=== PATIENT | male | born 1980 | race Caucasian/White ===

== ENCOUNTER 2018-09-06 16:50 | Emergency (ER) | payer BC ==
[~2018-09-06] VITALS: Ht 195.6 cm; Wt 102.1 kg
[2018-09-06] MEDS ORDERED: IV NORMAL SALINE 1,000ML 1,000 ML IV SCH (17:16)
[2018-09-06] MEDS ORDERED: KETOROLAC 30 MG/ML VIAL. IV ONE ×2 (17:30→18:45)
[2018-09-06] MEDS ORDERED: ONDANSETRON PF 4 MG/2 ML VIAL. IV ONE ×2 (17:30→18:45)
[2018-09-06 17:40] LABS: BASO % 0 % (0-3); EOS # 0.2 x10^3/uL (0.0-0.7); EOS % 2 % (0-3); HEMATOCRIT 44.1 % (39.0-53.0); HEMOGLOBIN 14.7 g/dL (13.0-17.5); LYMPH # 1.9 x10^3/uL (1.0-4.8); LYMPH % 25 % (24-48); MEAN CORPUSCULAR HEMOGLOBIN 31 pg (25-35); MEAN CORPUSCULAR HGB CONC 34 g/dL (31-37); MEAN CORPUSCULAR VOLUME 92 fL (79-100); MONO # 0.7 x10^3/uL (0.0-1.1); MONO % 9 % (0-9); NEUT # 4.8 x10^3uL (1.8-7.7); NEUT % 64 % (31-73); PLATELET COUNT 306 x10^3/uL (140-400); RED BLOOD COUNT 4.78 x10^6/uL (4.30-5.70); RED CELL DISTRIBUTION WIDTH 13.4 % (11.5-14.5); WHITE BLOOD COUNT 7.5 x10^3/uL (4.0-11.0)
[2018-09-06 18:04] LABS: ALBUMIN 4.3 g/dL (3.4-5.0); ALBUMIN/GLOBULIN RATIO 1.2 (1.0-1.7); CREATININE 0.9 mg/dL (0.7-1.3); GFR 94.4; POTASSIUM 3.5 mmol/L (3.5-5.1); TOTAL BILIRUBIN 0.3 mg/dL (0.2-1.0); TOTAL PROTEIN 7.8 g/dL (6.4-8.2)
--- NOTE | 2018-09-06 18:10 | PHYS DOC ---
Adult General Chief Complaint Chief Complaint: abdominal pain HPI HPI Patient is a 38 year old male who presents from his primary care physician office Dr. Grayson at [place] because of abdominal pain. Patient complaining of right lower quadrant abdominal pain for one month that getting worse for the last 2 days. Patient complaining of a stabbing pain in right lower quadrant as a constant pain getting better and worse. Patient complaining of 2 episodes of vomiting and nausea for the last 2 days and complaining of 2 episodes of diarrhea every day. Patient complaining of subjective fever and decrease of appetite and activity. Patient rated his pain 10 over 10. (RASHARD ACEVEDO MD) Review of Systems Review of Systems Constitutional: Reports fever] Eyes: Denies change in visual acuity, redness, or eye pain [] HENT: Denies nasal congestion or sore throat [] Respiratory: Denies cough or shortness of breath [] Cardiovascular: No additional information not addressed in HPI [] GI: Reports abdominal pain, nausea, vomiting, diarrhea [] : Denies dysuria or hematuria [] Musculoskeletal: Denies back pain or joint pain [] Integument: Denies rash or skin lesions [] Neurologic: Denies headache, focal weakness or sensory changes [] Endocrine: Denies polyuria or polydipsia [] All other systems were reviewed and found to be within normal limits, except as documented in this note. (RASHARD ACEVEDO MD) Current Medications Current Medications Current Medications Medications (Trade) Dose Ordered Sig/[place]on Start Time Stop Time Status Last Admin Dose Admin Ketorolac Tromethamine (Toradol 30mg Vial) 30 mg 1X ONCE 09/06/18 17:30 09/06/18 17:46 DC 09/06/18 17:40 30 MG Ondansetron HCl (Zofran) 4 mg 1X ONCE 09/06/18 17:30 09/06/18 17:46 DC 09/06/18 17:40 4 MG Sodium Chloride 1,000 ml @ 1,000 mls/hr Q1H 09/06/18 17:16 09/06/18 18:15 09/06/18 17:39 1,000 MLS/HR (RASHARD ACEVEDO MD) Allergies Allergies Allergies Coded Allergies Type Severity Reaction Last Updated Verified No Known Drug Allergies 09/06/18 No (RASHARD ACEVEDO MD) Physical Exam Physical Exam Constitutional: Well developed, well nourished, moderate distress, non-toxic appearance. [] HENT: Normocephalic, atraumatic, oropharynx dry, no oral exudates, nose normal. [] Eyes: PERRLA, EOMI, conjunctiva normal, no discharge. [] Neck: Normal range of motion, no tenderness, supple, no stridor. [] Cardiovascular:Heart rate regular rhythm, no murmur [] Lungs & Thorax: Bilateral breath sounds clear to auscultation [] Abdomen: Bowel sounds normal, soft, no tenderness, right lower quadrant guarding , no masses, no pulsatile masses. [] Skin: Warm, dry, no erythema, no rash. [] Back: No tenderness, no CVA tenderness. [] Extremities: No tenderness, no cyanosis, no clubbing, ROM intact, no edema. [] Neurologic: Alert and oriented X 3, normal motor function, normal sensory function, no focal deficits noted. [] Psychologic: Affect normal, judgement normal, mood normal. [] (RASHARD ACEVEDO MD) Current Patient Data Lab Results Laboratory Tests Test 09/06/18 17:20 White Blood Count 7.5 x10^3/uL (4.0-11.0) Red Blood Count 4.78 x10^6/uL (4.30-5.70) Hemoglobin 14.7 g/dL (13.0-17.5) Hematocrit 44.1 % (39.0-53.0) Mean Corpuscular Volume 92 fL (79-100) Mean Corpuscular Hemoglobin 31 pg (25-35) Mean Corpuscular Hemoglobin Concent 34 g/dL (31-37) Red Cell Distribution Width 13.4 % (11.5-14.5) Platelet Count 306 x10^3/uL (140-400) Neutrophils (%) (Auto) 64 % (31-73) Lymphocytes (%) (Auto) 25 % (24-48) Monocytes (%) (Auto) 9 % (0-9) Eosinophils (%) (Auto) 2 % (0-3) Basophils (%) (Auto) 0 % (0-3) Neutrophils # (Auto) 4.8 x10^3uL (1.8-7.7) Lymphocytes # (Auto) 1.9 x10^3/uL (1.0-4.8) Monocytes # (Auto) 0.7 x10^3/uL (0.0-1.1) Eosinophils # (Auto) 0.2 x10^3/uL (0.0-0.7) Basophils # (Auto) 0.0 x10^3/uL (0.0-0.2) (RASHARD ACEVEDO MD) EKG EKG [] (RASHARD ACEVEDO MD) Radiology/Procedures Radiology/Procedures [] (RASHARD ACEVEDO MD) Radiology/Procedures Initial CT showed no acute surgical processes. No findings of hydronephrosis. There was thickening of right colon. Patient's pain persisted prior to discharge. Did have rebound to right lower quadrant. Patient did have some mild psoas to right lower quadrant. Additional CT ordered with contrast which showed thickening of: No acute surgical process or findings of appendicitis. See formal reports Impressions: Impression- 1. Abdomen pain 2. Colitis 3. UTI? (ERIKA BOLDEN MD) Course & Med Decision Making Course & Med Decision Making Pertinent Labs and Imaging studies are pending. Evaluation of patient in ER showed 38-year-old male patient with complaining of abdominal pain and nausea and vomiting and diarrhea for [address] is pending. Patient care transferred to Dr. Bolden at 1800. (RASHARD ACEVEDO MD) Course & Med Decision Making Patient remain on a clear fluid diet only for the next 2 days. No solids. No milk products. Must allow bowel rest. Push clear fluids. Tylenol and ibuprofen for pain. Review ED labs and x-rays with primary care. Consider follow-up with GI and obtain a colonoscopic evaluation for causes of right colon thickening. Infection versus inflammatory bowel disorder. Patient to return if any concerns. May take Zofran for nausea and vomiting. Must push fluids. (ERIKA BOLDEN MD) Dragon Disclaimer Dragon Disclaimer This electronic medical record was generated, in whole or in part, using a voice recognition dictation system. (RASHARD ACEVEDO MD) Departure Departure: Impression: Primary Impression: Right lower quadrant pain Referrals: NIKITA OCAMPO MD (PCP) Scripts Ondansetron Hcl (ZOFRAN) 8 Mg Tablet 8 MG PO QIDPRN PRN for nv, #30 BOTTLE Prov: ERIKA BOLDEN MD 09/07/18 Hydrocodone/Ibuprofen (HYDROCODONE-IBUPROFEN 7.5-200 ) 1 Each Tablet 1 TAB PO PRN Q6HRS PRN for PAIN, #30 TAB 0 Refills Prov: ERIKA BOLDEN MD 09/07/18 Discharge Summary Visit Information: Final Diagnosis Problems Medical Problems: (1) Right lower quadrant pain Status: Acute (ERIKA BODLEN MD) Brief Hospital Course: Allergies: Allergies Coded Allergies Type Severity Reaction Last Updated Verified No Known Drug Allergies 09/06/18 No Vital Signs: Vital Signs Date Time Temp Pulse Resp B/P (MAP) Pulse Ox O2 Delivery O2 Flow Rate FiO2 09/06/18 23:53 61 16 118/58 (78) 98 Room Air 09/06/18 17:05 98.4 Lab Results: Laboratory Tests Test 09/06/18 17:20 09/06/18 18:00 White Blood Count 7.5 x10^3/uL (4.0-11.0) Red Blood Count 4.78 x10^6/uL (4.30-5.70) Hemoglobin 14.7 g/dL (13.0-17.5) Hematocrit 44.1 % (39.0-53.0) Mean Corpuscular Volume 92 fL (79-100) Mean Corpuscular Hemoglobin 31 pg (25-35) Mean Corpuscular Hemoglobin Concent 34 g/dL (31-37) Red Cell Distribution Width 13.4 % (11.5-14.5) Platelet Count 306 x10^3/uL (140-400) Neutrophils (%) (Auto) 64 % (31-73) Lymphocytes (%) (Auto) 25 % (24-48) Monocytes (%) (Auto) 9 % (0-9) Eosinophils (%) (Auto) 2 % (0-3) Basophils (%) (Auto) 0 % (0-3) Neutrophils # (Auto) 4.8 x10^3uL (1.8-7.7) Lymphocytes # (Auto) 1.9 x10^3/uL (1.0-4.8) Monocytes # (Auto) 0.7 x10^3/uL (0.0-1.1) Eosinophils # (Auto) 0.2 x10^3/uL (0.0-0.7) Basophils # (Auto) 0.0 x10^3/uL (0.0-0.2) Sodium Level 140 mmol/L (136-145) Potassium Level 3.5 mmol/L (3.5-5.1) Chloride Level 104 mmol/L (98-107) Carbon Dioxide Level 25 mmol/L (21-32) Anion Gap 11 (6-14) Blood Urea Nitrogen 15 mg/dL (8-26) Creatinine 0.9 mg/dL (0.7-1.3) Estimated GFR (Cockcroft-Gault) 94.4 BUN/Creatinine Ratio 17 (6-20) Glucose Level 97 mg/dL (70-99) Calcium Level 9.0 mg/dL (8.5-10.1) Total Bilirubin 0.3 mg/dL (0.2-1.0) Aspartate Amino Transf (AST/SGOT) 25 U/L (15-37) Alanine Aminotransferase (ALT/SGPT) 25 U/L (16-63) Alkaline Phosphatase 91 U/L (46-116) Total Protein 7.8 g/dL (6.4-8.2) Albumin 4.3 g/dL (3.4-5.0) Albumin/Globulin Ratio 1.2 (1.0-1.7) Lipase 273 U/L (73-393) Urine Collection Type Unknown Urine Color Yellow Urine Clarity Clear Urine pH 7.5 Urine Specific [place] 1.015 Urine Protein Neg (NEG-TRACE) Urine Glucose (UA) Neg mg/dL (NEG) Urine Ketones (Stick) Neg mg/dL (NEG) Urine Blood Trace (NEG) Urine Nitrite Neg (NEG) Urine Bilirubin Neg (NEG) Urine Urobilinogen Dipstick 0.2 mg/dL (0.2 mg/dL) Urine Leukocyte Esterase Neg (NEG) Urine RBC 0 /HPF (0-2) Urine WBC 0 /HPF (0-4) Urine Squamous Epithelial Cells Occ /LPF Urine Bacteria 0 /HPF (0-FEW) Urine Opiates Screen Neg (NEG) Urine Methadone Screen Neg (NEG) Urine Barbiturates Neg (NEG) Urine Phencyclidine Screen Neg (NEG) Urine Amphetamine/Methamphetamine Neg (NEG) Urine Benzodiazepines Screen Neg (NEG) Urine Cocaine Screen Neg (NEG) Urine Cannabinoids Screen Neg (NEG) Urine Ethyl Alcohol Neg (NEG) PE: Gen.: Alert, pleasant, no apparent distress HEENT: Normocephalic atraumatic, PERRLA EOMI, no scleral icterus, oral mucosa pink and moist Neck: Supple, no lymphadenopathy, nontender Cardiovascular: Normal S1 and S2 no murmurs Pulmonary: Lungs are clear bilaterally with good air movement no respiratory distress Abdomen: Soft nontender non-distended, bowel sounds present no masses Extremities: No clubbing, cyanosis or edema Neuro: Alert and oriented 3, cranial nerves II through XII grossly intact, no lateralizing neuro deficits Skin: Warm, dry Brief Hospital Course: Mr. Parrish is a 38 old hx of severe Rt,. lower abdomen and flank pain. Patient who presented with nausea and vomiting. No acute surgical processes noted. Suspect colitis. Will follow up with primary and GI. Pt. discharge had marked improvement of symptoms (ERIKA BOLDEN MD) Discharge Information: Condition at Discharge: Improved, Stable Disposition/Orders: D/C to Home (ERIKA BOLDEN MD) Dragon Disclaimer This chart was dictated in whole or in part using Voice Recognition software in a busy, high-work load, and often noisy Emergency Department environment. It may contain unintended and wholly unrecognized errors or omissions. (ERIKA BOLDEN MD) RASHARD ACEVEDO MD Sep 06, 2018 18:10 ERIKA BOLDEN MD Sep 08, 2018 00:44
--- NOTE | 2018-09-06 18:19 | RAD ---
Examination: CT of the abdomen pelvis without contrast HISTORY: History of right lower quadrant abdominal pain COMPARISON: None available Technique: Axial CT images of the abdomen pelvis were performed without contrast. Coronal and sagittal reformats are performed Exposure: One or more of the following individualized dose reduction techniques were utilized for this examination: 1. Automated exposure control 2. Adjustment of the mA and/or kV according to patient size 3. Use of iterative reconstruction technique FINDINGS: Calcified granuloma identified in the right middle lobe of the lung abutting the pleura. The bibasilar lungs are clear. No evidence of free air identified in the abdomen. The visualized noncontrasted liver, spleen, demonstrates a few calcified granulomas. The stomach is mildly distended. Cholecystectomy clips identified. Visualized pancreas grossly appears unremarkable. The small bowel is nondilated. The appendix is normal. Feces and gas noted in the colon. There is mild thickened appearance of the wall of the descending colon and sigmoid colon. Urinary bladder is mildly distended. Punctate 2 mm intrarenal collecting system calculus right kidney. No evidence of hydronephrosis. Questionable minimal fat stranding identified about the bilateral kidneys. The caliber of the aorta grossly appears unremarkable. Mild degenerative changes the lumbar spine with moderate degenerative changes at L5-S1 vertebral levels. IMPRESSION: 1. Normal appendix. 2. Punctate 2 mm calculus right kidney. No evidence of hydronephrosis. Questionable minimal fat stranding identified about the bilateral kidneys. Correlate for urinary tract infection. 3. Thickened appearance of the wall of the descending colon and sigmoid colon probably due to nondistention or less likely colitis. Electronically signed by: Lincoln Barakat MD (09/06/2018 6:16 PM) [facility]
[2018-09-06 18:41] LABS: BARBITURATES NEG (NEG); BENZODIAZEPINES NEG (NEG); CANNABINOIDS NEG (NEG); COCAINE NEG (NEG); METHADONE NEG (NEG); OPIATES NEG (NEG); PHENCYCLIDINE NEG (NEG)
[2018-09-06] MEDS ORDERED: MORPHINE SULFATE 10 MG/ML SYRINGE. SQ ONE ×2 (18:45→20:45)
[2018-09-06 18:47] LABS: BILIRUBIN,URINE NEG (NEG); CLARITY,URINE CLEAR; COLOR,URINE YELLOW
[2018-09-06 18:48] LABS: BACTERIA,URINE 0 /HPF (0-FEW); NITRITE,URINE NEG (NEG); RBC,URINE 0 /HPF (0-2); SQUAMOUS EPITHELIAL CELL,UR OCC /LPF; UROBILINOGEN,URINE 0.2 mg/dL (0.2 mg/dL); WBC,URINE 0 /HPF (0-4)
[2018-09-06 18:54] LABS: AMPHETAMINE/METHAMPHETAMINE NEG (NEG)
[2018-09-06] MEDS ORDERED: IV NORMAL SALINE 50ML 50 ML ONE (19:07)
[2018-09-06] MEDS ORDERED: cefTRIAXone SODIUM 1 GM VIAL ONE (19:08)
[2018-09-06] MEDS ORDERED: IOHEXOL 240 MG/ML 50ML VIAL. PO ONE (19:30)
[2018-09-06] MEDS ORDERED: IOHEXOL 300 MG/ML 75 ML VIAL. IV ONE (19:30)
[2018-09-06] MEDS ORDERED: FAMOTIDINE 20 MG/2 ML VIAL IVP ONE (20:15)
[2018-09-06] MEDS ORDERED: MAGNESIUM HYDROXIDE 2,400 MG/30 ML ORAL.SUSP. PO ONE (20:45)
--- NOTE | 2018-09-06 23:30 | RAD ---
CT study abdomen and pelvis with contrast Clinical indications: Worsening severe right lower quadrant abdominal pain History of cholecystectomy. TECHNIQUE: After IV infusion of 75 cc Omnipaque 350, helical CT scanning of abdomen and pelvis was performed. GI contrast was administered per mouth. PQRS compliance Statement One or more of the following individualized dose reduction techniques were utilized for this study: 1. Automated exposure control 2. Adjustment of the mA and/or kV according to patient size 3. Use of iterative reconstruction technique COMPARISON: Same day performed earlier and this was a noncontrast exam. FINDINGS: The liver and spleen and pancreas are homogeneous. The gallbladder is surgically absent. No extrahepatic biliary ductal dilatation is seen. No adrenal mass is evident. Both kidneys are functioning. The previously seen punctate right renal stone cannot be seen in this study due to the contrast. Otherwise, no hydronephrosis or hydroureter or ureteral stone is evident. No pyelonephritis or renal mass is seen. Urinary bladder wall is smooth. No focal aneurysmal dilatation of the abdominal aorta is seen. No enlarged abdominal or pelvic lymphadenopathy is evident. There is persistent wall thickening of the colon from the splenic flexure on down into the rectosigmoid region. The terminal ileum is unremarkable. The appendix is normal. No obstructive bowel pattern is evident. No free air or free fluid or mesenteric edema is evident. No lung base consolidation is seen. Mild right lung base atelectasis is seen. There is a calcified granuloma of the inferior aspect of the right middle lobe. No lytic process is evident. There is a central disc protrusion at L4-5 which migrates inferiorly. IMPRESSION: There is wall thickening of the colon from the splenic flexure on down into the rectosigmoid region which could be due to incomplete distention but given it's persistence, colitis is a possibility as well. No other acute abnormality of the abdomen or pelvis is seen. Central disc protrusion at L4-5 which migrates inferiorly. Electronically signed by: Marco Gongora MD (09/06/2018 11:27 PM) [facility]
[2018-09-06 23:45] LABS: GLUCOSE,URINE NEG (NEG)
[2018-09-06 23:53] VITALS: BP 118/58
[2018-09-07] MEDS ORDERED: ONDA8TAB9 PO (00:07)
[2018-09-07] MEDS ORDERED: HYDR-1179 PO (00:07)
== END 2018-09-07 00:32 | disposition home or self-care (01) ==
LOC: ER 16:50
DX: K52.9 Noninfective gastroenteritis and colitis, unspecified (principal); R11.2 Nausea with vomiting, unspecified; N20.0 Calculus of kidney
CPT/HCPCS: 36415; 74176; 74177; 80053; 80307; 81001; 83690; 85025; 96361; 96365; 96372; 96375; 96376; 99284; J0696; J1885; J2270; J2405; J3490; Q9966; Q9967; J7030